=== PATIENT | male | born 1990 | race Asian ===

== ENCOUNTER 2022-04-26 18:29 | Emergency (ER) | payer OTHER ==
[~2022-04-26] VITALS: Ht 190.5 cm; Wt 108.9 kg
[2022-04-26 19:50] VITALS: BP 116/70; TEMP 98.7
[2022-04-26] MEDS ORDERED: CEPH500C20 PO (19:52)
== END 2022-04-26 19:55 | disposition home or self-care (01) ==
LOC: ED 18:29
DX: S61.212A Laceration without foreign body of right middle finger without damage to nail, initial encounter (principal); W29.8XXA Contact with other powered hand tools and household machinery, initial encounter; Y92.89 Other specified places as the place of occurrence of the external cause
CPT/HCPCS: 90471; 90715; 99283